=== PATIENT | female | born 2000 | race Two or more races ===

== ENCOUNTER 2018-02-24 04:19 | Emergency (ER) | payer OTHER ==
--- NOTE | 2018-02-24 05:40 | ER Document Report ---
ED General - General Chief Complaint: Jaw Pain Stated Complaint: JAW PAIN Time Seen by Provider: 02/24/18 05:22 TRAVEL OUTSIDE OF THE [place] IN LAST 30 DAYS: No - HPI Notes: 17-year-old female who presents with left-sided jaw pain. Patient describes several months of intermittent left-sided jaw pain but now it is worse over the last couple of days. Aching and throbbing at times. No swelling. Gradual onset, nonradiating. Lower jaw on the left. No other modifying factors, no other associated symptoms, no other provocative or palliative factors. Past Medical History - Social History Smoking Status: Unknown if Ever Smoked Family History: Reviewed & Not Pertinent Patient has suicidal ideation: No Patient has homicidal ideation: No - Medical History Medical History: Negative Renal/ Medical History: Denies: Hx Peritoneal Dialysis Review of Systems - Review of Systems Notes: Review of systems as in history of present illness, otherwise no significant headache, chest pain, abdominal pain. Physical Exam - Vital signs Vitals: Temp Pulse Resp BP Pulse Ox 98.3 F 71 16 123/76 100 02/24/18 04:20 02/24/18 04:20 02/24/18 04:20 02/24/18 04:20 02/24/18 04:20 - Notes Notes: General: Well devloped, no acute distress. HEENT: Normocephalic, atraumatic. Pupils equal round reactive to light. Mucosa moist. No JVD. Carious dentition is noted in the left second molar. Slight Tenderness. Chest: No trauma, normal excursion. Respiratory: Good air exchange, normal excursion. Cardiac: Regular rhythm Abdomen: Soft, benign. Nondistended. Back: No asymmetry or gross abnormality. Motor: Grossly normal power and tone. Neurologic: Alert, nonfocal. Vascular: Well perfused Skin: No petechiae or purpura Course - Re-evaluation Re-evalutation: 02/24/18 05:38 Well-appearing female the after mentioned symptoms. May be early dental infection. No evidence of acute dental abscess. Will err on the side of caution and treat with antibiotics, outpatient follow-up. See - Vital Signs Vital signs: Temp Pulse Resp BP Pulse Ox 98.3 F 71 16 123/76 100 02/24/18 04:20 02/24/18 04:20 02/24/18 04:20 02/24/18 04:20 02/24/18 04:20 Discharge - Discharge Clinical Impression: Dental infection Condition: Good Disposition: HOME, SELF-CARE Instructions: Dental Infection or Abscess ([facility]) Prescriptions: Clindamycin HCl [Cleocin 300 mg Capsule] 300 mg PO Q6 #28 capsule
[2018-02-24 05:52] VITALS: BP 124/72
== END 2018-02-24 05:52 | disposition home or self-care (01) ==
LOC: ER 04:19
DX: K04.7 Periapical abscess without sinus (principal)
CPT/HCPCS: 99283